=== PATIENT | male | born 1970 | race Caucasian/White ===

== ENCOUNTER 2022-08-16 10:32 | Outpatient (CLI) | payer MEDICARE, SELFPAY ==
[2022-08-16 16:36] LABS: PSA Screen* 1.14 ng/mL (0.10-4.00)
[2022-08-16 16:37] LABS: TSH With Reflex to FT4* 0.571 uIU/mL (0.270-4.200)
== END 2022-08-16 10:33 | disposition home or self-care (01) ==
PROVIDERS: PCP Nurse Practitioner Family; Visit Provider Nurse Practitioner Family
DX: Z00.00 Encounter for general adult medical examination without abnormal findings (principal); E11.9 Type 2 diabetes mellitus without complications; E78.5 Hyperlipidemia, unspecified; I10 Essential (primary) hypertension; Z12.5 Encounter for screening for malignant neoplasm of prostate; Z13.29 Encounter for screening for other suspected endocrine disorder
CPT/HCPCS: 84153; 84443

== ENCOUNTER 2022-10-22 08:22 | Outpatient (CLI) | payer MEDICARE, SELFPAY ==
[2022-10-22 13:45] LABS: Albumin* 4.1 g/dL (3.3-5.0)
[2022-10-22 13:46] LABS: Chloride* 105 mmol/L (96-114); Sodium* 138 mmol/L (135-149)
[2022-10-22 13:48] LABS: Aspartate Amino Transferase* 26 U/L (12-35); Bilirubin Total* 0.4 mg/dL (0.1-1.5); Blood Urea Nitrogen* 14 mg/dL (7-30); Carbon Dioxide* 25 mmol/L (20-32); Cholesterol* 159 mg/dL (90-199); Creatinine* 0.9 mg/dL (0.5-1.5); Estimated Glomerular Filt Rate 103 ml/min; Total Protein* 7.1 g/dL (6.0-8.3)
[2022-10-22 13:49] LABS: Alanine Aminotransferase* 27 U/L (4-50); Alkaline Phosphatase* 79 U/L (40-150); Calcium* 9.1 mg/dL (8.4-10.6); Glucose* 217 mg/dL (60-115); HDL Cholesterol* 51 mg/dL (>=40); LDL Cholesterol Calculated 68 mg/dL (<100); Triglycerides* 202 mg/dL (40-149)
[2022-10-22 14:35] LABS: Creatinine Urine 121.6 mg/dL
[2022-10-22 14:38] LABS: Microalbumin Creatinine Ratio 30 mg/g (0-30); Microalbumin Urine 4 mg/dL
[2022-10-24 05:41] LABS: Vitamin D, 1,25-Dihydroxy 36.5 pg/mL (19.9-79.3)
== END 2022-10-22 08:23 | disposition home or self-care (01) ==
PROVIDERS: PCP Nurse Practitioner Family; Visit Provider Nurse Practitioner Family
DX: E11.9 Type 2 diabetes mellitus without complications (principal); E78.5 Hyperlipidemia, unspecified; E55.9 Vitamin D deficiency, unspecified; E78.1 Pure hyperglyceridemia; I10 Essential (primary) hypertension
CPT/HCPCS: 80053; 80061; 82043; 82570; 82652

== ENCOUNTER 2023-04-17 15:37 | Outpatient (CLI) | payer MEDICARE, SELFPAY | END 2023-04-17 15:38 | disposition home or self-care (01) | PROVIDERS: PCP Nurse Practitioner Family; Visit Provider Nurse Practitioner Family | DX: I10 Essential (primary) hypertension (principal); E87.6 Hypokalemia; E66.01 Morbid (severe) obesity due to excess calories; E78.5 Hyperlipidemia, unspecified; E11.9 Type 2 diabetes mellitus without complications | CPT/HCPCS: 80048 ==

== ENCOUNTER 2023-07-24 11:31 | Outpatient (CLI) | payer MEDICARE, SELFPAY ==
[2023-07-24 14:42] LABS: SARS PCR* Negative SARS-CoV-2 (Negative)
== END 2023-07-24 11:32 | disposition home or self-care (01) ==
LOC: KYNREF 11:31
PROVIDERS: PCP Nurse Practitioner Family; Visit Provider Nurse Practitioner Family
DX: J11.1 Influenza due to unidentified influenza virus with other respiratory manifestations (principal)
CPT/HCPCS: 87635

== ENCOUNTER 2023-08-15 09:23 | Outpatient (CLI) | payer MEDICARE, SELFPAY | END 2023-08-15 09:24 | disposition home or self-care (01) | PROVIDERS: PCP Nurse Practitioner Family; Visit Provider Nurse Practitioner Family | DX: E11.9 Type 2 diabetes mellitus without complications (principal); E03.9 Hypothyroidism, unspecified; E78.2 Mixed hyperlipidemia | CPT/HCPCS: 80053; 80061; 82043; 82570; 84443 ==

== ENCOUNTER 2023-11-04 14:11 | Outpatient (CLI) | payer MEDICARE, SELFPAY | END 2023-11-04 14:12 | disposition home or self-care (01) | PROVIDERS: PCP Nurse Practitioner Family; Visit Provider Nurse Practitioner Family | DX: R05.9 Cough, unspecified (principal); R06.00 Dyspnea, unspecified | CPT/HCPCS: 83880; 85025 ==

== ENCOUNTER 2023-11-14 09:44 | Outpatient (CLI) | payer MEDICARE, SELFPAY | END 2023-11-14 09:45 | disposition home or self-care (01) | LOC: RAD 09:45 | PROVIDERS: PCP Nurse Practitioner Family; Visit Provider Nurse Practitioner Family | DX: R06.00 Dyspnea, unspecified (principal); I35.1 Nonrheumatic aortic (valve) insufficiency; I34.0 Nonrheumatic mitral (valve) insufficiency; R94.31 Abnormal electrocardiogram [ECG] [EKG] | CPT/HCPCS: 93306 ==

== ENCOUNTER 2023-12-08 15:40 | Outpatient (CLI) | payer MEDICARE, SELFPAY | END 2023-12-08 15:41 | disposition home or self-care (01) | PROVIDERS: PCP Nurse Practitioner Family; Visit Provider Nurse Practitioner Family | DX: R00.2 Palpitations (principal); R60.0 Localized edema; R07.9 Chest pain, unspecified | CPT/HCPCS: 83735; 83880; 84443; 84484 ==

== ENCOUNTER 2024-01-06 16:58 | Emergency (ER) | payer MEDICARE, SELFPAY ==
[2024-01-06] VITALS (21 sets, daily range): BP systolic 129–186; BP diastolic 65–90; PULSE 74–87; RESP 20; TEMP 37.3; O2SAT 92–95; BMI 46.9
--- NOTE | 2024-01-06 17:34 | CRLHL7_ITS ---
For Patients: As a result of the Century Cures Act, medical imaging exams and procedure reports are released immediately into your electronic medical record. You may view this report before your referring provider. If you have questions, please contact your health care provider. INDICATION: Chest pressure, left arm numbness. TECHNIQUE: Chest 2 view. COMPARISON: Chest radiograph 11/04/2023 FINDINGS: No focal consolidation, pleural effusion, or pneumothorax. Normal heart size and pulmonary vascularity. Stable elevation of the right hemidiaphragm. Degenerative changes of the spine. IMPRESSION: No acute cardiopulmonary findings. Dictated by Carlie Ramirez MD @ 01/06/2024 7:38:59 PM (Electronically Signed)
--- NOTE | 2024-01-06 17:35 | ED_ITS ---
HPI - General Adult General Chief complaint: Chest Pain Stated complaint: Chest pain, numbness in arms Time Seen by Provider: 01/06/24 17:21 Source: patient Mode of arrival: ambulatory Limitations: no limitations History of Present Illness HPI narrative: 53-year-old male presents today with chest pain that has been occurring since November. Pain comes usually when patient is at rest. In last couple of hours and then goes away. He states that he came into the ER today because the pain was more intense. Looks like he has had a ZIO patch placed at the end of November, had an echocardiogram in November also. He states that when the pain comes he feels lightheaded, diaphoretic, nauseated. He denies vomiting. He states that the pain is substernal radiates into the left chest. It makes his left arm feel numb. He denies headache or blurry vision. He complains of poor sleep, poor appetite, poor energy in general- denies any weight loss. Past medical history significant for diabetes, obesity, hyperlipidemia, hyper tension, vitamin-D deficiency, intellectual disability, obstructive sleep apnea, depression. New medications include Ozempic which was started approximately 1 month ago. Related Data Home Medications ?Medication ?Instructions ?Recorded ?Confirmed ascorbic acid (vitamin C) 100 mg 100 mg PO QDAY 08/16/22 12/08/23 tablet aspirin 81 mg tablet,delayed 81 mg PO QDAY 08/16/22 12/08/23 release cholecalciferol (vitamin D3) 25 25 mcg PO QDAY 08/16/22 12/08/23 mcg (1,000 unit) capsule multivitamin with minerals 1 tab PO ONCE 08/16/22 12/08/23 turmeric 400 mg capsule 400 mg PO 10/17/23 12/08/23 Previous Rx's ?Medication ?Instructions ?Recorded diclofenac sodium 1 % topical gel 2 g topical QID PRN osteoarthritis 04/23/23 30 days #100 grams fluticasone propionate 50 2 spray intranasal QDAY 90 days 09/09/23 mcg/actuation nasal #16 grams spray,suspension (Allergy Relief (fluticasone)) amlodipine 10 mg tablet 10 mg PO QDAY 90 days #90 tabs 12/30/23 atorvastatin 20 mg tablet 20 mg PO QDAY #90 tabs 12/30/23 carboxymethylcellulose sodium 0.5 1 drp ophthalmic (eye) QDAY PRN 12/30/23 % eye drops in a dropperette dry eye(s) #30 ea (Refresh Plus) celecoxib 100 mg capsule (Celebrex) 100 mg PO BID 90 days #180 caps 12/30/23 chlorthalidone 25 mg tablet 25 mg PO QDAY 90 days #90 tabs 12/30/23 fenofibrate nanocrystallized 145 145 mg PO QDAY 90 days #90 tabs 12/30/23 mg tablet fluoxetine 40 mg capsule 40 mg PO QAM 90 days #90 caps 12/30/23 insulin detemir U-100 100 unit/mL 60 unit (0.6 mL) subcut BID #108 mL 12/30/23 (3 mL) subcutaneous pen insulin lispro 200 unit/mL (3 mL) 50 unit (0.25 mL) subcut TID #67.5 12/30/23 subcutaneous pen mL losartan 100 mg tablet 100 mg PO QDAY 90 days #90 tabs 12/30/23 pantoprazole 20 mg tablet,delayed 20 mg PO QDAY 90 days #90 tabs 12/30/23 release potassium chloride 10 mEq 10 meq PO ONCE #90 caps 12/30/23 capsule,extended release pen needle, diabetic 31 gauge x #1,200 ea 12/31/23 5/16 (Sure-Fine Pen [place]) semaglutide 1 mg/dose (4 mg/3 mL) 1 mg (0.75 mL) subcut QWEEK #3.75 01/02/24 subcutaneous pen injector mL Allergies Allergy/AdvReac Type Severity Reaction Status Date / Time lisinopril AdvReac Cough Verified 12/08/23 15:11 Review of Systems Status of ROS: Reports: 10 or more systems reviewed and unremarkable except as noted in History and below [facility] Medical History Osteoarthritis ?M19.90 - Unspecified osteoarthritis, unspecified site (ICD-10) Pancreatitis, acute ?K85.90 - Acute pancreatitis without necrosis or infection, unspecified (ICD- 10) Surgical History History of partial knee replacement ?Z96.659 - Presence of unspecified artificial knee joint (ICD-10) History of shoulder surgery ?Z98.890 - Other specified postprocedural states (ICD-10) History of appendectomy ?Z90.49 - Acquired absence of other specified parts of digestive tract (ICD- 10) History of cholecystectomy ?Z90.49 - Acquired absence of other specified parts of digestive tract (ICD- 10) Family History Father Heart disease Grandfather Prostate cancer Grandmother Myocardial infarction Son Scoliosis Social History Narrative: Lives with significant other. Never smoker. Smoking Status: Never smoker Do you use any of these nicotine containing products: None How often do you have a drink containing alcohol: never How often do you have six or more drinks on one occasion: Never AUDIT-C Alcohol total score: 0 Non-prescribed substance use: denies use Exam Narrative: Exam Narrative: Obese, well-developed patient in no acute distress. Alert and oriented x3. Answers questions appropriately. Mood is appropriate, flat affect. Thoughts are goal oriented and rational. No tangential or magical thinking noted. Katie ent speaks in full sentences without needing to catch his breath. HEENT: Normocephalic atraumatic. Pupils are equally round reactive to light. Extraocular muscles are intact. Conjunctivae are moist without any icterus noted. Moist mucous membranes. Posterior pharynx is normal. Neck is soft without any lymphadenopathy or thyromegaly. No masses are appreciated. Cardiovascular: Heart is regular rate and rhythm S1 and S2 are present without any murmurs. Cannot reproduce his pain with palpation. Lungs: Clear to auscultation bilaterally no wheezes rhonchi or rales are appreciated. Patient takes deep breaths without any discomfort. Abdomen: Soft and nontender nondistended with normal bowel sounds. Protuberant. Cannot assess for organomegaly secondary to body habitus. Extremities: Bilateral lower extremities are without edema. Normal DP and PT pulses. Skin: Well perfused without any obvious rashes. Const: Vital Signs, click to edit/add: Vital Signs - 24 hr 01/06/24 17:02 01/06/24 17:25 01/06/24 17:30 Temperature 99.1 F Pulse Rate 84 87 Pulse Rate [Right Pulse Oximeter] 84 Respiratory Rate 20 Blood Pressure Blood Pressure [Ri ght Upper Arm] 186/90 H Pulse Oximetry 93 94 95 Oxygen Delivery Me thod Room Air 01/06/24 17:31 01/06/24 17:32 01/06/24 17:33 Temperature Pulse Rate 85 79 Pulse Rate [Right Pulse Oximeter] Respiratory Rate Blood Pressure 154/79 H Blood Pressure [Ri ght Upper Arm] Pulse Oximetry 94 95 95 Oxygen Delivery Me thod 01/06/24 17:45 01/06/24 18:04 01/06/24 18:10 Temperature Pulse Rate 79 87 77 Pulse Rate [Right Pulse Oximeter] Respiratory Rate Blood Pressure 129/65 Blood Pressure [Ri ght Upper Arm] Pulse Oximetry 94 94 94 Oxygen Delivery Me thod 01/06/24 18:15 01/06/24 18:30 01/06/24 18:37 Temperature Pulse Rate 82 74 82 Pulse Rate [Right Pulse Oximeter] Respiratory Rate Blood Pressure 131/74 Blood Pressure [Ri ght Upper Arm] Pulse Oximetry 93 94 94 Oxygen Delivery Me thod 01/06/24 18:45 01/06/24 19:00 Temperature Pulse Rate 87 81 Pulse Rate [Right Pulse Oximeter] Respiratory Rate Blood Pressure Blood Pressure [Ri ght Upper Arm] Pulse Oximetry 94 95 Oxygen Delivery Me thod Course Course ED Course: EKG, read by me, shows sinus tachycardia with a pulse of 108, left anterior fascicular block, premature atrial complexes. Point of care troponin was 0. Lactate was slightly elevated at 2.1. Because of this we did start L of normal saline. CBC showed a slightly elevated white cell count 11.6, hemoglobin slightly low at 13.2. Normal platelet count at 370. D-dimer was normal at 0.3. Chemistry show a slightly low potassium at 3.4, otherwise unremarkable. Glucose elevated at 227. LFTs were unremarkable. CRP slightly elevated at 3.1. Normal lipase. Repeat EKG did not show any significant differences. Repeat troponin remained within normal limits. Chest x-ray, read by me, did not show any acute pathology. Vital Signs Vital signs: Initial Vital Signs Temperature 99.1 F 01/06/24 17:02 Temperature Source Temporal Artery Scan 01/06/24 17:02 Pulse Rate 84 01/06/24 17:02 Respiratory Rate 20 01/06/24 17:02 Blood Pressure 186/90 H 01/06/24 17:02 Blood Pressure Mean 122 H 01/06/24 17:02 Blood Pressure Position Sitting 01/06/24 17:02 Pulse Oximetry 93 01/06/24 17:02 Oxygen Delivery Method Room Air 01/06/24 17:02 Vital Signs Temperature 99.1 F 01/06/24 17:02 Pulse Rate 84 01/06/24 17:02 Respiratory Rate 20 01/06/24 17:02 Blood Pressure 186/90 H 01/06/24 17:02 Pulse Oximetry 93 01/06/24 17:02 Oxygen Delivery Method Room Air 01/06/24 17:02 Temperature 99.1 F 01/06/24 17:02 Pulse Rate 81 01/06/24 19:00 Respiratory Rate 20 01/06/24 17:02 Blood Pressure 131/74 01/06/24 18:37 Pulse Oximetry 95 01/06/24 19:00 Oxygen Delivery Method Room Air 01/06/24 17:02 Medications Administered Medications: Discontinued Medications Generic Name Dose Route Start Last Admin Trade Name Freq PRN Reason Stop Dose Admin Sodium Chloride 1,000 mls @ 1,000 mls/hr 01/06/24 18:00 01/06/24 19:35 0.9 % Sodium Chloride 1000 Ml IV 01/06/24 18:59 Infused .Q1H JOSEPH Infusion Medical Decision Making MDM Narrative Medical decision making narrative: 53-year-old male with several weeks of chest pain, currently undergoing workup. Given the fact that the patient does have risk factors for coronary artery disease, recommend he follow up with primary care provider this week and have a stress test done. Patient was in agreement and had no other questions. No evidence of PE, pneumothorax, pneumonia, pericarditis. Other things to consider include esophageal dysfunction, GERD. During the duration you and characteristics of his symptoms I do not think that this is an aortic dissection or esophageal rupture. Medical Records Medical records reviewed: Yes I reviewed the patient's medical records Lab Data Lab results reviewed: Yes I reviewed the patient's lab results Labs: Lab Results 01/06/24 Range/Units 17:20 WBC 11.62 H (4.50-11.00) K/uL RBC 4.71 (4.30-5.90) m/uL Hgb 13.2 L (13.5-17.5) gm/dL Hct 40.0 (37.0-53.0) % MCV 85 (80-100) fL MCH 28 (26-34) pg MCHC 33 (32-36) gm/dL RDW Coeff of [place] 13.8 (11.5-15.5) % Plt Count 370 (140-440) K/uL Neut % (Auto) 75.6 H (42.0-72.0) % Lymph % (Auto) 14.6 L (20-44) % [place] % (Auto) 7.9 (0.0-11.0) % Eos % (Auto) 0.5 (0.0-7.0) % Baso % (Auto) 0.3 (0.0-3.0) % Neut # (Auto) 8.80 H (1.7-7.0) K/uL Lymph # (Auto) 1.70 (0.90-2.90) K/uL [place] # (Auto) 0.90 (0.00-0.90) K/UL Eos # (Auto) 0.10 (0.00-0.50) K/uL Baso # (Auto) 0.00 (0.00-0.30) K/uL Abs Immat Gran (auto) 0.10 (0.00-0.30) K/uL Imm/Tot Granulo (auto) 1.1 % D-Dimer Quant (PE/DVT) 0.30 (0.00-0.50) ug/ml Sodium 138 (135-149) mmol/L Potassium 3.4 L (3.6-5.1) mmol/L Chloride 104 (96-114) mmol/L Carbon Dioxide 25 (20-32) mmol/L Anion Gap 9 (7-15) mEq/L BUN 17 (7-30) mg/dL Creatinine 0.9 (0.5-1.5) mg/dL Estimated Creat Clear 113.45 Estimated GFR 102 ml/min Glucose 227 H (60-115) mg/dL Lactate 2.1 H (0.5-1.9) mmol/L Calcium 8.8 (8.4-10.6) mg/dL Magnesium 2.0 (1.5-2.6) mg/dL Total Bilirubin 0.7 (0.1-1.5) mg/dL Direct Bilirubin 0.5 (0.0-0.5) mg/dL AST 36 H (12-35) U/L ALT 35 (4-50) U/L Alkaline Phosphatase 74 (40-150) U/L Troponin I < 0.01 L (0.01-0.04) ng/mL C-Reactive Protein 3.1 H (0.5-1.0) mg/dL NT-Pro-B Natriuret Pep 157 pg/mL Total Protein 8.5 H (6.0-8.3) g/dL Albumin 4.6 (3.3-5.0) g/dL Lipase 54 (23-300) U/L POC Troponin I 0.00 L (0.01-0.04) ng/ml Imaging Data Chest x-ray: Attestation: I have reviewed the pertinent imaging results. Radiologist's impression: Study:?XRay-Chest 2 VIEWS-01/06/2024 6:19:58 PM Ordering Physician:Landon Bartholomew Final Report: INDICATION: Chest pressure, left arm numbness. TECHNIQUE: Chest 2 view. COMPARISON: Chest radiograph 11/04/2023 FINDINGS: No focal consolidation, pleural effusion, or pneumothorax. Normal heart size and pulmonary vascularity. Stable elevation of the right hemidiaphragm. Degenerative changes of the spine. IMPRESSION: No acute cardiopulmonary findings. ECG Data Attestation: I personally reviewed and interpreted this ECG as follows: Discharge Plan Discharge Clinical Impression: Atypical chest pain Patient Disposition: Home, Self-Care Condition: Stable Additional Instructions: Recommend you follow-up with primary care provider this week and discuss proceeding with a stress test. Prescriptions: No Action ascorbic acid (vitamin C) 100 mg tablet 100 mg PO QDAY aspirin 81 mg tablet,delayed release (DR/EC) 81 mg PO QDAY cholecalciferol (vitamin D3) 25 mcg (1,000 unit) capsule 25 mcg PO QDAY multivitamin with minerals Tablet 1 tab PO ONCE turmeric 400 mg capsule 400 mg PO diclofenac sodium 1 % gel 2 g topical QID PRN (Reason: osteoarthritis) 30 Days Qty: 100 3RF fluticasone propionate [Allergy Relief (fluticasone)] 50 mcg/actuation spray,suspension 2 spray intranasal QDAY 90 Days Qty: 16 11RF Rx Instructions: administer into each nostril potassium chloride 10 mEq capsule, extended release 10 meq PO ONCE Qty: 90 3RF pantoprazole 20 mg tablet,delayed release (DR/EC) 20 mg PO QDAY 90 Days Qty: 90 3RF losartan 100 mg tablet 100 mg PO QDAY 90 Days Qty: 90 3RF insulin lispro 200 unit/mL (3 mL) insulin pen 50 unit subcut TID Qty: 67.5 3RF Rx Instructions: hold if blood sugar under 150 insulin detemir U-100 100 unit/mL (3 mL) insulin pen 60 unit subcut BID Qty: 108 3RF fluoxetine 40 mg capsule 40 mg PO QAM 90 Days Qty: 90 3RF fenofibrate nanocrystallized 145 mg tablet 145 mg PO QDAY 90 Days Qty: 90 3RF chlorthalidone 25 mg tablet 25 mg PO QDAY 90 Days Qty: 90 3RF celecoxib [Celebrex] 100 mg capsule 100 mg PO BID 90 Days Qty: 180 3RF atorvastatin 20 mg tablet 20 mg PO QDAY Qty: 90 3RF amlodipine 10 mg tablet 10 mg PO QDAY 90 Days Qty: 90 3RF carboxymethylcellulose sodium [Refresh Plus] 0.5 % dropperette 1 drp ophthalmic (eye) QDAY PRN (Reason: dry eye(s)) Qty: 30 12RF (DME) pen needle, diabetic [Sure-Fine Pen [place]] 31 gauge x 5/16 needle See Rx Instructions .Route Qty: 1200 4RF Rx Instructions: 6x/day semaglutide 1 mg/dose (4 mg/3 mL) pen injector 1 mg subcut QWEEK Qty: 3.75 0RF Follow Up/Referrals: Yessenia Nunez, [employer], MICROPALEONTOLOGIST [Primary Care Provider] - Stand Alone Forms: [facility] Info Instructions
[2024-01-06 17:39] LABS: Lactate* 2.1 mmol/L (0.5-1.9)
[2024-01-06 18:06] LABS: Basophils Percent Auto 0.3 % (0.0-3.0); Eosinophils Percent Auto 0.5 % (0.0-7.0); Hemoglobin* 13.2 gm/dL (13.5-17.5); Immature Granulocytes Pct Auto 1.1 %; Lymphocytes Percent Auto 14.6 % (20-44); Mean Corpuscular HGB Conc 33 gm/dL (32-36); Mean Corpuscular Hemoglobin 28 pg (26-34); Mean Corpuscular Volume 85 fL (80-100); Monocytes Percent Auto 7.9 % (0.0-11.0); Neutrophils Percent Auto 75.6 % (42.0-72.0); Platelet Count* 370 K/uL (140-440); RDW Coefficient of Variation % 13.8 % (11.5-15.5); Red Blood Count 4.71 m/uL (4.30-5.90); White Blood Count* 11.62 K/uL (4.50-11.00)
[2024-01-06] MEDS: 0.9 % SODIUM CHLORIDE 1000 ml 1,000 ML IV (18:10)
[2024-01-06 18:18] LABS: Albumin* 4.6 g/dL (3.3-5.0); Chloride* 104 mmol/L (96-114)
[2024-01-06 18:19] LABS: Potassium* 3.4 mmol/L (3.6-5.1); Sodium* 138 mmol/L (135-149)
[2024-01-06 18:20] LABS: Slide Review Reflex No
[2024-01-06 18:21] LABS: Creatinine* 0.9 mg/dL (0.5-1.5); Est. Creatinine Clearance* 113.45; Estimated Glomerular Filt Rate 102 ml/min
[2024-01-06 18:22] LABS: Alanine Aminotransferase* 35 U/L (4-50); Alkaline Phosphatase* 74 U/L (40-150); Anion Gap 9 mEq/L (7-15); Aspartate Amino Transferase* 36 U/L (12-35); Bilirubin Direct* 0.5 mg/dL (0.0-0.5); Bilirubin Total* 0.7 mg/dL (0.1-1.5); Blood Urea Nitrogen* 17 mg/dL (7-30); Calcium* 8.8 mg/dL (8.4-10.6); Carbon Dioxide* 25 mmol/L (20-32); Glucose* 227 mg/dL (60-115); Lipase* 54 U/L (23-300); Total Protein* 8.5 g/dL (6.0-8.3)
[2024-01-06 18:25] LABS: C Reactive Protein* 3.1 mg/dL (0.5-1.0)
[2024-01-06 18:40] LABS: NT Pro B Type NatriureticPept* 157 pg/mL; Troponin I* < 0.01 ng/mL (0.01-0.04)
== END 2024-01-06 19:51 | disposition home or self-care (01) ==
PROVIDERS: Emergency Provider Family Medicine; PCP Nurse Practitioner Family
DX: R07.9 Chest pain, unspecified (principal)
CPT/HCPCS: 36415; 71046; 80048; 80076; 83605; 83690; 83735; 83880; 84484; 85025; 85379; 86140; 93005; 94761; 99284; 99285; J7030